=== PATIENT | male | born 1995 | race African-American/Black ===

== ENCOUNTER 2022-01-10 15:35 | Emergency (ER) | payer SELFPAY ==
[~2022-01-10] VITALS: Ht 177.8 cm; Wt 78.0 kg
[2022-01-10] MEDS ORDERED: LEVETIRACETAM 1000MG PREMIX 100 ML IV ONE (17:00)
[2022-01-10 18:20] LABS: BASOPHILS % 0.2 % (0.0-2.0); EOSINOPHILS % 0.2 % (0.0-5.0); HEMATOCRIT. 45.9 % (42.0-52.0); HEMOGLOBIN. 15.2 g/dL (14.0-18.0); LYMPHOCYTES % 13.9 % (20.0-50.0); MEAN CORPUSCULAR HEMOGLOBIN 28.1 pg (28.0-32.0); MEAN CORPUSCULAR VOLUME 84.6 fL (80.0-94.0); MEAN PLATELET VOLUME 8.8 fl (7.4-10.4); MONOCYTES % 7.4 % (2.0-8.0); NEUTROPHILS % 78.3 % (40.0-76.0); PLATELET 176 x1000/uL (130-400); RED BLOOD CELL COUNT 5.42 mill/uL (4.7-6.1); RED CELL DISTRIBUTION WIDTH 14.7 % (11.6-14.6)
[2022-01-10 18:27] LABS: CHLORIDE 107 mEq/L (98-107)
[2022-01-10 18:46] LABS: ETHANOL BLOOD < 10 mg/dL; PHOSPHORUS 2.5 mg/dL (2.5-4.9)
[2022-01-10] MEDS ORDERED: KEPP500 MT ×2 (19:30)
[2022-01-10 20:00] VITALS: BP 108/56
[2022-01-12] MEDS ORDERED: KEPP500 PO (09:53)
== END 2022-01-10 20:30 | disposition home or self-care (01) ==
LOC: EDBD 15:35 → ER 15:35
DX: R56.9 Unspecified convulsions (principal)
CPT/HCPCS: 36415; 70450; 80053; 80320; 82962; 83735; 84100; 84443; 85025; 93005; 96365; 99285; J1953; G0480

== ENCOUNTER 2022-05-06 12:37 | Emergency (ER) | payer MEDICAID ==
[~2022-05-06] VITALS: Ht 170.2 cm; Wt 75.0 kg
[~2022-05-06 12:37] MED LIST: KEPP500 PO
[2022-05-06 12:40] VITALS: BP 127/73
[2022-05-06] MEDS ORDERED: LEVETIRACETAM 1000MG PREMIX 100 ML IV ONE (13:00)
[2022-05-06 14:42] LABS: BASOPHILS % 0.3 % (0.0-2.0); EOSINOPHILS % 0.8 % (0.0-5.0); HEMATOCRIT. 45.3 % (42.0-52.0); LYMPHOCYTES % 17.6 % (20.0-50.0); MEAN CORPUSCULAR HEMOGLOBIN 27.9 pg (28.0-32.0); MEAN CORPUSCULAR VOLUME 84.1 fL (80.0-94.0); MEAN PLATELET VOLUME 8.7 fl (7.4-10.4); MONOCYTES % 8.4 % (2.0-8.0); NEUTROPHILS % 72.9 % (40.0-76.0); PLATELET 198 x1000/uL (130-400); RED BLOOD CELL COUNT 5.39 mill/uL (4.7-6.1); RED CELL DISTRIBUTION WIDTH 13.3 % (11.6-14.6)
[2022-05-06 14:49] LABS: CHLORIDE 108 mEq/L (98-107)
== END 2022-05-06 15:26 | disposition left against medical advice (07) ==
LOC: ER 12:37
DX: G40.909 Epilepsy, unspecified, not intractable, without status epilepticus (principal)
CPT/HCPCS: 36415; 70450; 80053; 85025; 96374; 99285; J1953

== ENCOUNTER 2022-06-20 07:56 | Emergency (ER) | payer MEDICAID, OTHER ==
[~2022-06-20] VITALS: Ht 177.8 cm; Wt 64.0 kg
[2022-06-20 08:02] VITALS: BP 110/64
[2022-06-20] MEDS ORDERED: KEPP500 MT (08:09)
[2022-06-20] MEDS ORDERED: LEVETIRACETAM 500MG TABLET PO ONE (08:15)
== END 2022-06-20 08:29 | disposition home or self-care (01) ==
LOC: ER 07:56
DX: Z76.0 Encounter for issue of repeat prescription (principal); Z86.59 Personal history of other mental and behavioral disorders; Z00.00 Encounter for general adult medical examination without abnormal findings
CPT/HCPCS: 99281

== ENCOUNTER 2023-05-05 08:55 | Emergency (ER) | payer OTHER ==
[~2023-05-05] VITALS: Ht 177.8 cm; Wt 63.5 kg
[~2023-05-05 08:55] MED LIST changes: +KEPP500 MT
[2023-05-05 09:19] VITALS: BP 119/75; PULSE 60; RESP 16; TEMP 98.4; O2SAT 99
[2023-05-05] MEDS ORDERED: KEPP500 MT (09:42)
== END 2023-05-05 09:48 | disposition home or self-care (01) ==
LOC: ER 08:55
DX: G40.909 Epilepsy, unspecified, not intractable, without status epilepticus (principal); Z76.0 Encounter for issue of repeat prescription
CPT/HCPCS: 99281

== ENCOUNTER 2023-07-22 16:51 | Emergency (ER) | payer OTHER ==
[~2023-07-22] VITALS: Ht 172.7 cm; Wt 70.0 kg
[2023-07-22 16:52] VITALS: TEMP 98.5; O2SAT 98
[2023-07-22] MEDS: LEVETIRACETAM 1000MG PREMIX 100 ML IV ONE (17:28)
[2023-07-22] MEDS: ONDANSETRON HCL 4MG/2ML INJ IV STA (17:28)
[2023-07-22] MEDS: SODIUM CHLORIDE 0.9% 1,000 ML IV ONE (17:28)
[2023-07-22 17:29] LABS: BASOPHILS % 0.3 % (0.0-2.0); HEMATOCRIT. 48.5 % (42.0-52.0); HEMOGLOBIN. 16.5 g/dL (14.0-18.0); LYMPHOCYTES % 32.8 % (20.0-50.0); MEAN CORPUSCULAR HEMOGLOBIN 29.3 pg (28.0-32.0); MEAN CORPUSCULAR VOLUME 86.3 fL (80.0-94.0); MEAN PLATELET VOLUME 8.7 fl (7.4-10.4); MONOCYTES % 8.8 % (2.0-8.0); NEUTROPHILS % 57.1 % (40.0-76.0); PLATELET 229 x1000/uL (130-400); RED BLOOD CELL COUNT 5.62 mill/uL (4.7-6.1); RED CELL DISTRIBUTION WIDTH 13.5 % (11.6-14.6); WHITE BLOOD COUNT 11.5 x1000/uL (4.5-11.0)
[2023-07-22 17:37] LABS: CHLORIDE 103 mEq/L (98-107); POTASSIUM 3.7 mEq/L (3.5-5.1); SODIUM 139 mEq/L (136-145)
[2023-07-22 17:38] LABS: CARBON DIOXIDE 22 mEq/L (21-32)
[2023-07-22 17:43] LABS: CREATININE 1.2 mg/dL (0.6-1.3); GLUCOSE 116 mg/dL (70-105); UREA NITROGEN BLOOD 10 mg/dL (9-23)
[2023-07-22 18:58] VITALS: BP 11/52; PULSE 88; RESP 15
== END 2023-07-22 21:28 | disposition home or self-care (01) ==
LOC: ER 16:51
DX: G40.909 Epilepsy, unspecified, not intractable, without status epilepticus (principal)
CPT/HCPCS: 80048; 85025; 36415; 96365; 96375; 99284; J1953; J2405; J7030; Z7610 ×2

== ENCOUNTER 2024-08-13 15:02 | Emergency (ER) | payer OTHER ==
[~2024-08-13] VITALS: Ht 180.3 cm; Wt 75.0 kg
[2024-08-13 15:13] VITALS: TEMP 37.1; O2SAT 100
[2024-08-13] MEDS ORDERED: KEPP500 MT (16:27)
[2024-08-13 16:43] VITALS: BP 127/82; PULSE 56; RESP 18; O2SAT 100
== END 2024-08-13 16:43 | disposition home or self-care (01) ==
LOC: ER 15:02
DX: G40.909 Epilepsy, unspecified, not intractable, without status epilepticus (principal); Z76.0 Encounter for issue of repeat prescription; Z79.899 Other long term (current) drug therapy
CPT/HCPCS: 99281